=== PATIENT | male | born 1945 | race Caucasian/White ===

== ENCOUNTER 2018-03-27 08:19 | Outpatient (CLI) | payer MEDICARE, OTHER ==
[~2018-03-27] VITALS: Ht 180.3 cm; Wt 113.4 kg
[2018-03-27 08:25] VITALS: BP 135/78
== END 2018-03-27 08:45 | disposition home or self-care (01) ==
LOC: SDC 08:19
PROVIDERS: ATTEND Nurse Practitioner Family
DX: Z45.2 Encounter for adjustment and management of vascular access device (principal)
CPT/HCPCS: 99212

== ENCOUNTER 2018-05-14 13:05 | Outpatient (RCR) | payer MEDICARE, OTHER | END 2018-05-22 | disposition home or self-care (01) | LOC: ONC 13:05 | PROVIDERS: ATTEND Radiology Radiation Oncology | DX: C61 Malignant neoplasm of prostate (principal) | CPT/HCPCS: 99204 ==

== ENCOUNTER → 2018-06-03 | Outpatient (CLI) | payer MEDICARE, OTHER | LOC: CARD 10:28 | PROVIDERS: ATTEND Family Medicine | DX: R00.1 Bradycardia, unspecified (principal) | CPT/HCPCS: 93005 ==

== ENCOUNTER → 2023-08-18 | Outpatient (CLI) | payer MEDICARE, OTHER ==
--- NOTE | 2023-08-18 13:12 | Diagnostic Imaging Report ---
INDICATION: Upper abdominal pain. COMPARISON: None. FINDINGS: Supine and upright views of the abdomen show a few scattered air-fluid levels in otherwise nondilated loops of small bowel. There is no large collection of free intraperitoneal air. No abnormal extraosseous calcifications are seen. Bony and soft tissue structures are within normal limits. No organomegaly is identified. Accompanying upright chest shows normal heart size and pulmonary vascularity. The lungs are well aerated and clear. The mediastinum is normal in appearance. IMPRESSION: 1. No bowel obstruction or free air. 2. Normal chest. No pneumonia or pulmonary edema. Dictated by: Dictated on workstation # [id number]
== END ==
LOC: RAD 11:20
PROVIDERS: ATTEND Physician Assistant
DX: R10.10 Upper abdominal pain, unspecified (principal)
CPT/HCPCS: 74022